=== PATIENT | male | born 1940 | race Caucasian/White ===

== ENCOUNTER 2017-06-21 13:11 | Observation (INO) | payer MEDICARE ==
[2017-06-21 13:48] LABS: ABSOLUTE LYMPHOCYTES (AUTO) 0.9 10^3/uL (0.5-4.7); ABSOLUTE MONOCYTES (AUTO) 0.8 10^3/uL (0.1-1.4); ABSOLUTE NEUT (AUTO) 5.9 10^3/uL (1.7-8.2); BASOPHILS % (AUTO) 0.4 % (0-2); HEMATOCRIT 35.4 % (37.9-51.0); HEMOGLOBIN 12.1 g/dL (13.5-17.0); LYMPHOCYTES % (AUTO) 12.1 % (13-45); MEAN CORPUSCULAR HEMOGLOBIN 30.7 pg (27.0-33.4); MEAN CORPUSCULAR HGB CONC 34.2 g/dL (32.0-36.0); MEAN CORPUSCULAR VOLUME 90 fl (80-97); MONOCYTES % (AUTO) 10.5 % (3-13); PLATELET COUNT 100 10^3/uL (150-450); RED BLOOD COUNT 3.94 10^6/uL (4.35-5.55); RED CELL DISTRIBUTION WIDTH 14.7 % (11.5-14.0); TOTAL CELLS COUNTED % (AUTO) 100 %; WHITE BLOOD COUNT 7.6 10^3/uL (4.0-10.5)
[2017-06-21 14:04] LABS: ALANINE AMINOTRANSFERASE 35 U/L (21-72); ALBUMIN 3.8 g/dL (3.5-5.0); ALKALINE PHOSPHATASE 50 U/L (38-126); ANION GAP 10 (5-19); ASPARTATE AMINO TRANSFERASE 34 U/L (17-59); BILIRUBIN,DIRECT 0.5 mg/dL (0.0-0.4); BILIRUBIN,TOTAL 0.8 mg/dL (0.2-1.3); BLOOD UREA NITROGEN 35 mg/dL (7-20); CALCIUM 8.5 mg/dL (8.4-10.2); CARBON DIOXIDE 24 mmol/L (22-30); CHLORIDE 105 mmol/L (98-107); CREATINE KINASE 361 U/L (55-170); POTASSIUM 3.7 mmol/L (3.6-5.0); SODIUM 138.6 mmol/L (137-145); TOTAL PROTEIN 6.7 g/dL (6.3-8.2)
[2017-06-21 14:05] LABS: GLUCOSE 130 mg/dL (75-110)
[2017-06-21 14:21] LABS: CREATINE KINASE MB 1.22 ng/mL (<4.55); TROPONIN I 0.03 ng/mL
[2017-06-21 14:48] LABS: APPEARANCE,URINE SLIGHTLY-CLOUDY; BILIRUBIN,URINE NEGATIVE (NEGATIVE); COLOR,URINE YELLOW; GLUCOSE, URINE NEGATIVE (NEGATIVE); KETONES,URINE NEGATIVE (NEGATIVE); LEUKOCYTE ESTERASE,URINE NEGATIVE (NEGATIVE); NITRITE,URINE NEGATIVE (NEGATIVE); PROTEIN,URINE 100 mg/dL (NEGATIVE); URINE SPECIFIC GRAVITY 1.021
[2017-06-21] MEDS ORDERED: NORMAL SALINE 1000 ML 1,000 ML IV ONE ×2 (14:59→16:47)
--- NOTE | 2017-06-21 15:02 | RADIOLOGY REPORT (SQ) ---
EXAM DESCRIPTION: CHEST PA/LAT COMPLETED DATE/TIME: 06/21/2017 2:53 pm REASON FOR STUDY: Congested, productive cough for 4 days. COMPARISON: 01/22/2000 60 EXAM PARAMETERS: NUMBER OF VIEWS: two views TECHNIQUE: Digital Frontal and Lateral radiographic views of the chest acquired. RADIATION DOSE: NA LIMITATIONS: none FINDINGS: LUNGS AND PLEURA: Left hemidiaphragm remains elevated. There is no infiltrate or effusion . No mass is seen. MEDIASTINUM AND HILAR STRUCTURES: No masses or contour abnormalities. HEART AND VASCULAR STRUCTURES: Heart normal size. No evidence for failure. BONES: No acute findings. HARDWARE: None in the chest. OTHER: No other significant finding. IMPRESSION: NO SIGNIFICANT RADIOGRAPHIC FINDING IN THE CHEST. TECHNICAL DOCUMENTATION: JOB ID: [id number] [employer]- All Rights Reserved Reading location - IP/workstation name: [email or web address]
--- NOTE | 2017-06-21 16:03 | ER Document Report ---
ED Syncope and Near Syncope - General Chief Complaint: Syncope Stated Complaint: POSSIBLE SYNCOPE Time Seen by Provider: 06/21/17 14:58 Notes: Patient says that he has not been feeling well for the past 4 days, having flu symptoms primarily with a cough and congestion and productive of phlegm. He went to a local urgent care this [facility] and while there was feeling poorly and coughing a lot so he sat down on a bench outside next to his and then appeared to pass out, slumping onto his left side. says that only lasted for a few seconds, and then he was responsive again. His appetite has been poor but he did eat a couple pieces of toast this morning.. Has not had a fever. No nausea or vomiting, but did have some diarrhea over the last few days. Denies any chest pains. Some shortness of breath occasionally. No history of any lung disease. No urinary tract symptoms. PMH: Cholesterol, hypertension, NIDDM, heart problems. TRAVEL OUTSIDE OF THE [place] IN LAST 30 DAYS: No - Related Data Allergies/Adverse Reactions: No Known Allergies Allergy (Verified 06/21/17 13:26) Past Medical History - Social History Smoking Status: Never Smoker Chew tobacco use (# tins/day): No Frequency of alcohol use: None Drug Abuse: None Family History: None, Reviewed & Not Pertinent Patient has suicidal ideation: No Patient has homicidal ideation: No - Past Medical History Cardiac Medical History: Reports: Hx Hypercholesterolemia, Hx Hypertension Denies: Hx Atrial Fibrillation Pulmonary Medical History: Denies: Hx Asthma, Hx COPD Endocrine Medical History: Reports: Hx Diabetes Mellitus Type 2 - metformin Musculoskeltal Medical History: Denies None, Reports Hx Arthritis, Denies Hx Fibromyalgia, Denies Hx Gout, Denies Hx Multiple Sclerosis, Denies Hx Muscular Dystrophy, Denies Hx Muscle Spasm, Denies Hx Muscle Weakness, Denies Hx Musculoskeletal Deformity, Denies Hx Musculoskeletal Trauma, Denies Hx Myositis , Denies Hx Restless Leg Syndrome, Denies Other - Immunizations Hx Diphtheria, Pertussis, Tetanus Vaccination: Yes Review of Systems - Review of Systems Notes: REVIEW OF SYSTEMS: CONSTITUTIONAL : Denies fever. EENT: Denies eye, ear, nose or mouth or throat pain or other symptoms. CARDIOVASCULAR: Denies chest pain. RESPIRATORY: See HPI. GASTROINTESTINAL: Denies abdominal pain or nausea, vomiting, but has had some diarrhea for the past couple of days. GENITOURINARY: Denies difficulty or painful urinating, urinary frequency, blood in urine. MUSCULOSKELETAL: Denies back or neck pain. Denies joint pain or swelling. SKIN: Denies rash or skin lesions. NEUROLOGICAL: Denies LOC or altered mental status. Denies headache. Denies sensory loss or motor deficits. ALL OTHER SYSTEMS REVIEWED AND NEGATIVE. Physical Exam - Vital signs Vitals: Resp Pulse Ox 25 H 91 L 06/21/17 13:20 06/21/17 13:20 Interpretation: Hypotensive - Lower range of normal., Hypoxic - Slightly at 91. - Notes Notes: PHYSICAL EXAMINATION: GENERAL: Well-appearing, in no acute distress. Blood pressure borderline low range of normal HEAD: Atraumatic, normocephalic. EYES: Pupils equal round and reactive to light, extraocular movements intact. ENT: oropharynx clear without exudates. Moist mucous membranes. NECK: Normal range of motion, supple. No carotid bruits heard. LUNGS: Breath sounds clear and equal bilaterally. Borderline low O2 sat at 91%. HEART: Regular rate and rhythm without murmurs. ABDOMEN: Soft, nontender. No guarding or rebound. No masses. BACK: No tenderness throughout entire back. EXTREMITIES: Normal range of motion without pain. Darker discoloration around the right ankle from where the patient had a long-standing ulcer of the skin that would not heal. Does not appear to be anything acute such as erythema, warmth, drainage, etc. NEUROLOGICAL: Normal speech, normal gait. Normal sensory, motor, and reflex exams. Awake, alert, and oriented x3. Cranial nerves normal. PSYCH: Normal mood, normal affect. SKIN: Warm, dry, no rashes. Course - Re-evaluation Re-evalutation: 06/21/17 16:56 Patient remained awake and alert but says he feels weak at times. His blood pressure dropped to as low as a systolic in the 70s or 80s. He was given a liter of saline followed by a second liter of saline. There is no apparent source of infection. White cell count is normal. Urine looks normal. Chest x- ray no infiltrates. Hospitalist has been contacted and they will admit the patient to telemetry for hydration and observation. - Vital Signs Vital signs: Temp Pulse Resp BP Pulse Ox 98.6 F 58 L 21 H 85/48 L 96 06/21/17 14:26 06/21/17 15:03 06/21/17 14:01 06/21/17 15:03 06/21/17 14:00 - Laboratory Result Diagrams: 06/21/17 13:35 06/21/17 13:35 Laboratory results interpreted by me: 06/21/17 06/21/17 06/21/17 13:35 13:35 14:10 RBC 3.94 L Hgb 12.1 L Hct 35.4 L RDW 14.7 H Plt Count 100 L Lymphocytes % 12.1 L BUN 35 H Creatinine 1.89 H Est GFR ( Amer) 42 L Est GFR (Non-Af Amer) 35 L Glucose 130 H Direct Bilirubin 0.5 H Creatine Kinase 361 H Urine Protein 100 H Urine Urobilinogen 8.0 H - Diagnostic Test Radiology results interpreted by me: 06/21/17 16:06 Chest x-ray normal. - EKG Interpretation by Me EKG shows normal: Sinus rhythm Rate: Normal Rhythm: NSR Independence/QRS: LBBB When compared to previous EKG there are: No significant change - Left bundle branch block present on EKG in December of last year. Discharge - Discharge Clinical Impression: Syncope, Hypotension Disposition: ADMITTED OBSERVATION Admitting Provider: Hospitalist Unit Admitted: Telemetry
[2017-06-21 16:27] LABS: A TYPE INFLUENZA AG NEGATIVE (NEGATIVE); B INFLUENZA AG NEGATIVE (NEGATIVE)
[2017-06-21] MEDS ORDERED: NORMAL SALINE 1000 ML 1,000 ML IV PRN (18:09)
--- NOTE | 2017-06-21 18:43 | EKG REPORT ---
SEVERITY:- ABNORMAL ECG - SINUS RHYTHM ATRIAL PREMATURE COMPLEX LEFT BUNDLE BRANCH BLOCK : Confirmed by: Nguyễn Mobley MD 21-Jun-2017 18:42:34
--- NOTE | 2017-06-21 21:38 | PDOC H&P ---
History of Present Illness Admission Date/PCP: 06/21/17 17:29 Patient complains of: Syncope History of Present Illness: FLO ARREAGA is a 77 year old male who presented to the ED after syncope episode. He reports a viral-like illness for the past 4 days and has not been eating and drinking much. He has cough, but nonproductive. Today he went to a local urgent care, and he started to cough a lot and sat on the bench outside next to his and then slumped to the side. This lasted only a few seconds and he did not lose consciousness. Patient presented to the ED where he was found to be hypotensive with systolic BPas low as the 70's. He was treated with IV fluid boluses and SBP improved to 100.. ED workup significant for EKG revealing left bundle branch block, but this was not new. Patient also found to have elevated BUN/creatinine of 30/1.8. He was referred to the hospitalist service for admission. He denies chest pain, currently with no fever or chills. Cough is nonproductive. Chest x-ray unremarkable, lactic acid 1.1 Past Medical History Cardiac Medical History: Reports: Hyperlipidema, Hypertension Denies: Atrial Fibrillation Pulmonary Medical History: Denies: Asthma, Chronic Obstructive Pulmonary Disease (COPD) Endocrine Medical History: Reports: Diabetes Mellitus Type 2 - metformin Musculoskeltal Medical History: Reports: Arthritis Denies: None, Fibromyalgia, Gout, Other Social History Smoking Status: Never Smoker Family History Family History: None, Reviewed & Not Pertinent Parental Family History Reviewed: Yes Children Family History Reviewed: Yes Sibling(s) Family History Reviewed.: Yes Medication/Allergy Home Medications: Amlodipine Besylate/Benazepril [Amlodipine-Benazepril 10-20 mg] 10 - 20 mg PO DAILY 06/21/17 Atorvastatin Calcium 40 mg PO QHS 06/21/17 Carvedilol [Carvedilol] 25 mg PO BID 06/21/17 Hydrochlorothiazide [Hydrochlorothiazide] 25 mg PO DAILY 06/21/17 Metformin HCl [Metformin HCl ER] 500 mg PO DAILY 06/21/17 Allergies/Adverse Reactions: No Known Allergies Allergy (Verified 06/21/17 13:26) Review of Systems Review of Systems: CONSTITUTIONAL : Fever, chills -- No; unexpalined fatigue -- No EENT: Mouth feels dry, no pain. Denies nasal or sinus congestion or discharge. Denies throat, tongue, or mouth swelling or difficulty swallowing. CARDIOVASCULAR: Denies chest pain. No racing heart RESPIRATORY: Has cough, no shortness of breath, difficulty breathing. GASTROINTESTINAL: Denies abdominal pain or distention. Denies nausea, vomiting , or diarrhea. No rectal bleeding. GENITOURINARY: Urinary symptoms -- no. MUSCULOSKELETAL: No acute weakness SKIN: Denies rash, lesions or sores. HEMATOLOGIC : Denies easy bruising or bleeding. LYMPHATIC: Denies swollen, enlarged glands. NEUROLOGICAL: New weakness, headaches, slured speach - No PSYCHIATRIC: Changes anxiety or stress, depression, suicidal ideation, or homicidal ideation -- No ALL OTHER SYSTEMS REVIEWED AND NEGATIVE. Physical Exam Vital Signs: Temp Pulse Resp BP Pulse Ox 98.6 F 58 L 18 100/64 91 L 06/21/17 14:26 06/21/17 15:03 06/21/17 18:01 06/21/17 18:01 06/21/17 18:01 GENERAL: Well-developed, well-nourished, no acute distress HEENT: Normocephalic/atraumatic NECK supple, no JVD CARDIOVASCULAR: RRR, normal S1-S2 LUNGS: CTA bilaterally ABDOMEN: Soft, NT, NL bowel sounds EXTREMITIES: No edema, clubbing, cyanosis NEUROLOGICAL: Alert, oriented x 3, no focal weakness Results Laboratory Results: 06/21/17 06/21/17 06/21/17 13:35 13:35 14:10 RBC 3.94 L Hgb 12.1 L Hct 35.4 L RDW 14.7 H Plt Count 100 L Lymphocytes % 12.1 L BUN 35 H Creatinine 1.89 H Est GFR ( Amer) 42 L Est GFR (Non-Af Amer) 35 L Glucose 130 H Direct Bilirubin 0.5 H Creatine Kinase 361 H Urine Protein 100 H Urine Urobilinogen 8.0 H Impressions: Chest X-Ray 06/21/17 14:14 IMPRESSION: NO SIGNIFICANT RADIOGRAPHIC FINDING IN THE CHEST. Assessment & Plan - Diagnosis (1) Syncope Is this a current diagnosis for this admission?: Yes Plan: Suspect secondary to hypotension, which in turn likely secondary to dehydration from poor oral intake. Will continue IV fluid. Hold blood pressure medications. (2) Acute kidney injury Is this a current diagnosis for this admission?: Yes Plan: Suspect secondary to dehydration secondary to poor oral intake from URI symptoms. Will continue IV fluids. Follow-up Chem-7 in a.m. (3) Hypotension Is this a current diagnosis for this admission?: Yes Plan: Likely secondary to dehydration. Continue IV fluid. (4) Upper respiratory infection Is this a current diagnosis for this admission?: Yes Plan: Likely viral. Continue IV fluid. Symptoms management. (5) History of hypertension Is this a current diagnosis for this admission?: Yes Plan: We hold blood pressure medications at this time due to hypotension. Monitor blood pressures. (6) Diabetes mellitus, type II Is this a current diagnosis for this admission?: Yes Plan: Hold metformin for now due to elevated BUN/creatinine. Accu-Cheks with sliding scale insulin coverage as needed. Checking hemoglobin A1c in a.m.
[2017-06-22 05:27] LABS: HEMATOCRIT 31.5 % (37.9-51.0); HEMOGLOBIN 10.9 g/dL (13.5-17.0); MEAN CORPUSCULAR HEMOGLOBIN 31.2 pg (27.0-33.4); MEAN CORPUSCULAR HGB CONC 34.5 g/dL (32.0-36.0); MEAN CORPUSCULAR VOLUME 90 fl (80-97); RED BLOOD COUNT 3.49 10^6/uL (4.35-5.55); RED CELL DISTRIBUTION WIDTH 14.4 % (11.5-14.0)
[2017-06-22 05:58] LABS: PLATELET COUNT 94 10^3/uL (150-450)
[2017-06-22 06:01] LABS: ANION GAP 9 (5-19); BLOOD UREA NITROGEN 33 mg/dL (7-20); CALCIUM 8.4 mg/dL (8.4-10.2); CARBON DIOXIDE 23 mmol/L (22-30); CHLORIDE 106 mmol/L (98-107); CREATINE KINASE 352 U/L (55-170); GLUCOSE 97 mg/dL (75-110); SODIUM 138.1 mmol/L (137-145)
[2017-06-22] MEDS ORDERED: ENOXAPARIN SODIUM INJ 30 MG/0.3 ML DISP.SYRIN SUBCUT SCH (10:00)
--- NOTE | 2017-06-22 13:14 | PDOC DISCHARGE SUMMARY ---
General - Admit/Disc Date/PCP Admission Date/Primary Care Provider: 06/21/17 17:29 Discharge Date: 06/22/17 - Discharge Diagnosis (1) Syncope Is this a current diagnosis for this admission?: Yes (2) Acute kidney injury Is this a current diagnosis for this admission?: Yes (3) Hypotension Is this a current diagnosis for this admission?: Yes (4) Upper respiratory infection Is this a current diagnosis for this admission?: Yes (5) History of hypertension Is this a current diagnosis for this admission?: Yes (6) Diabetes mellitus, type II Is this a current diagnosis for this admission?: Yes - Additional Information Resuscitation Status: Full Code Discharge Diet: Cardiac, Diabetic Discharge Activity: Activity As Tolerated Home Medications: Atorvastatin Calcium 40 mg PO QHS 06/21/17 Metformin HCl [Metformin HCl ER] 500 mg PO DAILY 06/21/17 History of Present Illness History of Present Illness: FLO ARREAGA is a 77 year old male who presented to the ED after syncope episode. He reports a viral-like illness for the past 4 days and has not been eating and drinking much. He has cough, but nonproductive. Today he went to a local urgent care, and he started to cough a lot and sat on the bench outside next to his and then slumped to the side. This lasted only a few seconds and he did not lose consciousness. Patient presented to the ED where he was found to be hypotensive with systolic BPas low as the 70's. He was treated with IV fluid boluses and SBP improved to 100.. ED workup significant for EKG revealing left bundle branch block, but this was not new. Patient also found to have elevated BUN/creatinine of 30/1.8. He was referred to the hospitalist service for admission. He deniesd chest pain, no fever or chills. Cough was nonproductive. Chest x-ray unremarkable, lactic acid 1.1 Hospital Course Hospital Course: Patient was admitted to hospitalist service. Hypotension was thought likely secondary to poor oral intake and your/fluid intake patient also had elevated BUN and creatinine to dehydration with a creatinine of 1.8 (based on 1.2). Patient was continued on IV fluids. To monitor, blood pressures has improved to systolic of 120s, no dizziness, no recurrent syncope episode. Patient feeling much better and he and his are requesting for him to go home. He is being discharged in improved condition. He is advised to hold off resuming his blood pressure medicines at this time. He states he can see his PCP in 2 days, on Saturday, for reevaluation and have them resume all or some of some of his blood pressures as needed. He is to take Robitussin for cough. He to return to ED if further problems. Physical Exam Vital Signs: Temp Pulse Resp BP Pulse Ox 99.6 F 73 20 138/61 H 92 06/22/17 08:14 06/22/17 08:14 06/22/17 08:14 06/22/17 08:14 06/22/17 08:14 Intake & Output 06/21/17 06/22/17 06/23/17 06:59 06:59 06:59 Intake Total 1400 Output Total 825 Balance 575 Weight 100.4 kg GENERAL: Well-developed, well-nourished, no acute distress HEENT: Normocephalic/atraumatic NECK supple, no JVD CARDIOVASCULAR: RRR, normal S1-S2 LUNGS: CTA bilaterally ABDOMEN: Soft, NT, NL bowel sounds EXTREMITIES: No edema, clubbing, cyanosis NEUROLOGICAL: Alert, oriented x 3, no focal weakness Results Laboratory Results: 06/22/17 03:53 06/22/17 03:53 06/22/17 06/22/17 03:53 03:53 WBC 7.0 RBC 3.49 L Hgb 10.9 L Hct 31.5 L MCV 90 MCH 31.2 MCHC 34.5 RDW 14.4 H Plt Count 94 L Sodium 138.1 Potassium 4.0 Chloride 106 Carbon Dioxide 23 Anion Gap 9 BUN 33 H Creatinine 1.15 Est GFR ( Amer) > 60 Est GFR (Non-Af Amer) > 60 Glucose 97 Calcium 8.4 06/22/17 03:53 Creatine Kinase 352 H Impressions: Chest X-Ray 06/21/17 14:14 IMPRESSION: NO SIGNIFICANT RADIOGRAPHIC FINDING IN THE CHEST. Qualifiers - * PATEINT BEING DISCHARGED WITH ANY OF THE FOLLOWING DIAGNOSIS?: No Plan Time Spent: Greater than 30 Minutes
[2017-06-22 13:23] VITALS: BP 128/57
== END 2017-06-22 13:49 | disposition home or self-care (01) ==
LOC: ER 13:11 → EH 17:29 → 5 19:14
PROVIDERS: ADMIT Internal Medicine; ATTEND Internal Medicine
DX: R55 Syncope and collapse (principal); E11.9 Type 2 diabetes mellitus without complications; I10 Essential (primary) hypertension; N17.9 Acute kidney failure, unspecified; J06.9 Acute upper respiratory infection, unspecified; I44.7 Left bundle-branch block, unspecified; Z79.84 Long term (current) use of oral hypoglycemic drugs
CPT/HCPCS: 93005; 99285; 96360; 96361; 36415 ×2; 87040; 82553; 82550 ×2; 85025; 85027; 80048; 80053; 81001; 84484; 83036; 83605; 87804; 71046; 93010; G0378 ×3; J7030

== ENCOUNTER → 2017-06-26 | Outpatient (CLI) | payer MEDICARE ==
--- NOTE | 2017-06-26 12:26 | RADIOLOGY REPORT (SQ) ---
EXAM DESCRIPTION: CHEST PA/LATERAL COMPLETED DATE/TIME: 06/26/2017 12:11 pm REASON FOR STUDY: COUGH COMPARISON: Chest films 08/13/2009, 06/21/2017 EXAM PARAMETERS: NUMBER OF VIEWS: two views TECHNIQUE: Digital Frontal and Lateral radiographic views of the chest acquired. RADIATION DOSE: NA LIMITATIONS: none FINDINGS: LUNGS AND PLEURA: No opacities, masses or pneumothorax. No pleural effusion. MEDIASTINUM AND HILAR STRUCTURES: No masses or contour abnormalities. HEART AND VASCULAR STRUCTURES: Heart normal size. No evidence for failure. BONES: Osteoporotic HARDWARE: None in the chest. OTHER: Chronic elevation left hemidiaphragm IMPRESSION: No acute changes TECHNICAL DOCUMENTATION: JOB ID: [id number] [employer]- All Rights Reserved Reading location - IP/workstation name: [email or web address]
== END ==
LOC: OD 11:51
PROVIDERS: ATTEND Family Medicine
DX: R05 Cough (principal); Q79.1 Other congenital malformations of diaphragm
CPT/HCPCS: 71046

== ENCOUNTER → 2019-01-07 | Outpatient (CLI) | payer MEDICARE | LOC: LAB 10:21 | PROVIDERS: ATTEND Internal Medicine Cardiovascular Disease | DX: I49.1 Atrial premature depolarization (principal) | CPT/HCPCS: 36415; 83735 ==

== ENCOUNTER → 2019-04-03 | Outpatient (CLI) | payer MEDICARE ==
[2019-04-03 10:49] LABS: ANION GAP 11 (5-19); BLOOD UREA NITROGEN 26 mg/dL (7-20); CALCIUM 9.7 mg/dL (8.4-10.2); CARBON DIOXIDE 26 mmol/L (22-30); CHLORIDE 104 mmol/L (98-107); CHOLESTEROL 153.21 mg/dL (0-200); GLUCOSE 96 mg/dL (75-110); POTASSIUM 4.6 mmol/L (3.6-5.0); TRIGLYCERIDES 88 mg/dL (<150)
[2019-04-03 11:00] LABS: DIRECT LDL 87 mg/dL (<100)
[2019-04-03 14:19] LABS: ALBUMIN 4.3 g/dL (3.5-5.0); ALKALINE PHOSPHATASE 92 U/L (38-126); ASPARTATE AMINO TRANSFERASE 27 U/L (17-59); BILIRUBIN,DIRECT 0.3 mg/dL (0.0-0.4); BILIRUBIN,TOTAL 0.7 mg/dL (0.2-1.3); TOTAL PROTEIN 7.4 g/dL (6.3-8.2)
== END ==
LOC: LAB 08:54
PROVIDERS: ATTEND Internal Medicine Cardiovascular Disease
DX: E83.42 Hypomagnesemia (principal); E55.9 Vitamin D deficiency, unspecified; I10 Essential (primary) hypertension; E78.00 Pure hypercholesterolemia, unspecified; Z79.899 Other long term (current) drug therapy
CPT/HCPCS: 36415; 80048; 80061; 80076; 82306; 83735

== ENCOUNTER → 2020-02-17 | Outpatient (CLI) | payer MEDICARE ==
[2020-02-17 10:48] LABS: ALBUMIN 4.3 g/dL (3.5-5.0); ALKALINE PHOSPHATASE 73 U/L (38-126); ANION GAP 9 (5-19); ASPARTATE AMINO TRANSFERASE 19 U/L (17-59); BILIRUBIN,DIRECT 0.1 mg/dL (0.0-0.4); BILIRUBIN,TOTAL 0.5 mg/dL (0.2-1.3); BLOOD UREA NITROGEN 38 mg/dL (7-20); CALCIUM 9.9 mg/dL (8.4-10.2); CARBON DIOXIDE 23 mmol/L (22-30); CHLORIDE 109 mmol/L (98-107); GLUCOSE 99 mg/dL (75-110); POTASSIUM 5.2 mmol/L (3.6-5.0); TOTAL PROTEIN 7.3 g/dL (6.3-8.2); TRIGLYCERIDES 138 mg/dL (<150)
[2020-02-17 10:59] LABS: DIRECT LDL 69 mg/dL (<100)
== END ==
LOC: OD 09:49
PROVIDERS: ATTEND Physician Assistant
DX: E78.00 Pure hypercholesterolemia, unspecified (principal); I10 Essential (primary) hypertension; E83.42 Hypomagnesemia; Z79.899 Other long term (current) drug therapy
CPT/HCPCS: 36415; 80048; 80061; 80076; 83735